=== PATIENT | female | born 1950 | race Caucasian/White ===

== ENCOUNTER 2018-04-07 09:46 | Outpatient (REF) | payer OTHER, SELFPAY ==
[2018-04-07 13:19] LABS: Cholesterol 211 mg/dL (50-200); HDL Cholesterol 59 mg/dL (40-60); LDL CHOLESTEROL 123 mg/dL (<100); Triglyceride 199 mg/dL (30-150)
== END 2018-04-07 10:06 ==
LOC: NCHCN 09:46
PROVIDERS: PCP Family Medicine; Visit Provider Family Medicine
DX: E55.9 Vitamin D deficiency, unspecified (principal); E78.5 Hyperlipidemia, unspecified
CPT/HCPCS: 80061; 82306; 83721

== ENCOUNTER 2018-06-30 00:23 | Outpatient (CLI) | payer OTHER, SELFPAY ==
--- NOTE | 2018-06-30 12:50 | DI.MAMMO_ITS ---
SYMPTOMS/DIAGNOSIS: SCREENING, Z12.31 BILATERAL SCREENING MAMMOGRAM: Mammograms were interpreted according to the usual protocol including computer analysis with CAD system, tomosynthesis and C view imaging. Comparison is made with exams from 2014 and 2016 from [facility]. The breasts are composed of scattered fibroglandular density, breast density category B. There is dense breast tissue in the subareolar region and a question of an area of nodularity in the right subareolar region. Spot compression views and ultrasound are recommended for further evaluation. No changes seen in the left breast. There are no suspicious calcifications in either breast. IMPRESSION: Left breast category 1B, negative mammogram. Right breast category 0. MQSA ASSESSMENT OF FINDINGS: Incomplete: Needs additional imaging evaluation. Category 0. Patient will receive a letter notifying them of these results. MQSA ASSESSMENT OF FINDINGS: Negative. Category 1. Patient will receive a letter notifying them of these results. BI-RADS category B. There are scattered areas of fibroglandular density.
== END 2018-06-30 00:43 ==
PROVIDERS: PCP Family Medicine; Visit Provider Family Medicine
DX: Z12.31 Encounter for screening mammogram for malignant neoplasm of breast (principal); R92.8 Other abnormal and inconclusive findings on diagnostic imaging of breast
CPT/HCPCS: 77063; 77067

== ENCOUNTER 2018-07-14 01:08 | Outpatient (CLI) | payer OTHER, SELFPAY ==
--- NOTE | 2018-07-14 10:30 | DI.COMBO_ITS ---
SYMPTOMS/DIAGNOSIS: F/U MAMMO, DENSE BREAST TISSUE IN THE SUBAREOLAR REGION AND ? AREA OF NODULARITY RT SUBAREOLAR REGION SPOT COMPRESSION VIEWS OF THE RIGHT BREAST AND RIGHT BREAST ULTRASOUND: Additional images are interpreted according to the usual protocol including tomosynthesis and 2D imaging. Spot compression views were performed of the subareolar region which showed dense tissue. There has been no change from the previous exam. Similar findings are seen in the collateral breast. Right breast ultrasound shows dense tissue in the retroareolar region. No underlying mass is seen. The left breast was also scanned for comparison which shows similar appearing dense tissue. IMPRESSION: Category 2, negative mammogram and right breast ultrasound with benign findings of dense breast tissue. Yearly screening mammography is recommended. Breast density Category B. MQSA ASSESSMENT OF FINDINGS: Negative with benign findings. Category 2. Patient will receive a letter notifying them of these results. BI-RADS category B. There are scattered areas of fibroglandular density.
== END 2018-07-14 01:28 ==
PROVIDERS: PCP Family Medicine; Visit Provider Family Medicine
DX: Z12.31 Encounter for screening mammogram for malignant neoplasm of breast (principal); R92.8 Other abnormal and inconclusive findings on diagnostic imaging of breast; N64.59 Other signs and symptoms in breast
CPT/HCPCS: 76642; 77063; 77067

== ENCOUNTER 2019-04-14 09:20 | Outpatient (REF) | payer OTHER, SELFPAY ==
[2019-04-14 12:23] LABS: ALT 22 U/L (14-59); AST 20 U/L (15-37); Alkaline Phosphatase 79 U/L (46-116); BUN 16 mg/dL (7-18); Bilirubin, Total 0.7 mg/dL (0.2-1.0); CREATININE 1.27 mg/dL (0.55-1.02); Calcium 9.4 mg/dL (8.5-10.1); Calculated LDL 121 mg/dL; Chloride 101 mmol/L (98-107); Cholesterol 222 mg/dL (50-200); Glucose 115 mg/dL (70-100); HDL Cholesterol 68 mg/dL (40-60); Sodium 138 mmol/L (136-145); Triglyceride 165 mg/dL (30-150)
== END 2019-04-14 09:40 ==
LOC: NCHCN 09:20
PROVIDERS: PCP Family Medicine; Visit Provider Family Medicine
DX: E78.5 Hyperlipidemia, unspecified (principal); I10 Essential (primary) hypertension; R35.0 Frequency of micturition
CPT/HCPCS: 80053; 80061; 87086

== ENCOUNTER 2020-04-18 09:51 | Outpatient (REF) | payer OTHER, SELFPAY ==
[2020-04-18 22:21] LABS: HCT 42.3 % (36.0-46.0); HGB 13.7 g/dL (11.2-15.7); MCH 31.6 pg (27.0-33.0); MCHC 32.4 % (32.0-36.0); MCV 97.7 fL (80-95); MPV 10.5 fL (8.0-11.0); Platelet Count 204 10^3/uL (130-400); RBC 4.33 10^6/uL (3.93-5.22); RDW 12.5 % (11.7-14.6); RDW-SD 44.9 fL
[2020-04-18 22:45] LABS: ALT 28 U/L (14-59); AST 18 U/L (15-37); Albumin 3.8 g/dL (3.4-5.0); Alkaline Phosphatase 70 U/L (46-116); BUN 20 mg/dL (7-18); Bilirubin, Total 0.5 mg/dL (0.2-1.0); CREATININE 1.27 mg/dL (0.55-1.02); Calcium 9.3 mg/dL (8.5-10.1); Calculated LDL 119 mg/dL (<100); Chloride 103 mmol/L (98-107); Cholesterol 215 mg/dL (<200); Estimated GFR 41.48 (mL/min/1.73m2); Glucose 102 mg/dL (74-106); HDL Cholesterol 57 mg/dL (40-60); Potassium 5.1 mmol/L (3.5-5.1); Sodium 137 mmol/L (136-145); Total Protein 7.5 g/dL (6.4-8.2); Triglyceride 197 mg/dL (<150)
== END 2020-04-18 10:11 ==
LOC: NCHCN 09:51
PROVIDERS: PCP Family Medicine; Visit Provider Family Medicine
DX: Z00.00 Encounter for general adult medical examination without abnormal findings (principal); E78.5 Hyperlipidemia, unspecified; I10 Essential (primary) hypertension; R73.03 Prediabetes; R53.83 Other fatigue
CPT/HCPCS: 80053; 80061; 85027

== ENCOUNTER 2021-04-25 14:50 | Outpatient (REF) | payer MEDICARE, SELFPAY ==
[2021-04-25 14:39] LABS: HCT 46.2 % (36.0-46.0); HGB 14.6 g/dL (11.2-15.7); MCHC 31.6 % (32.0-36.0); MCV 98.1 fL (80-95); MPV 10.3 fL (8.0-11.0); Platelet Count 249 10^3/uL (130-400); RBC 4.71 10^6/uL (3.93-5.22); RDW 12.7 % (11.7-14.6); RDW-SD 46.3 fL; WBC 6.16 10^3/uL (4.4-10.8)
[2021-04-25 14:53] LABS: Hemoglobin A1C 5.8 % (<5.7)
[2021-04-25 15:18] LABS: Vitamin D 25 Total 51.7 ng/mL (30-100)
[2021-04-25 15:19] LABS: ALT 32 U/L (14-59); AST 20 U/L (15-37); Alkaline Phosphatase 77 U/L (46-116); Anion Gap 6.9 mmol/L (3-11); BUN 26 mg/dL (7-18); Bilirubin, Total 0.5 mg/dL (0.2-1.0); CO2 30.1 mmol/L (21.0-32.0); CREATININE 1.4 mg/dL (0.55-1.02); Calcium 9.8 mg/dL (8.5-10.1); Calculated LDL 149 mg/dL (<100); Chloride 103 mmol/L (98-107); Cholesterol 250 mg/dL (<200); Estimated GFR 36.96 (mL/min/1.73m2); Glucose 108 mg/dL (74-106); HDL Cholesterol 68 mg/dL (40-60); Potassium 5.3 mmol/L (3.5-5.1); Sodium 140 mmol/L (136-145); Triglyceride 166 mg/dL (<150)
== END 2021-04-25 14:51 | disposition home or self-care (01) ==
LOC: NCHCN 14:50
PROVIDERS: PCP Family Medicine; Visit Provider Family Medicine
DX: E66.9 Obesity, unspecified (principal); R73.03 Prediabetes; E55.9 Vitamin D deficiency, unspecified; R53.83 Other fatigue; E78.5 Hyperlipidemia, unspecified; I10 Essential (primary) hypertension
CPT/HCPCS: 80053; 80061; 82306; 85027; 83036

== ENCOUNTER 2021-07-08 13:10 | Inpatient (IN) | payer MEDICARE, SELFPAY ==
[2021-07-08] VITALS (21 sets, daily range): BP systolic 98–157; BP diastolic 74–99; PULSE 63–107; RESP 13–32; TEMP 36.6–37.9; O2SAT 86–95
--- NOTE | 2021-07-08 13:15 | RT.EKG_ITS ---
APPROVED REPORT Exam: Resting ECG Reason for Exam: SOB Patient Location: E HR:87 bpm ECG Measurements Heart Rate 87 AXIS NV 147 P 19 QRSd 93 QRS -15 QT 360 T 74 QTc 434 Conclusion Sinus rhythm...normal P axis, V-rate 60- 99 Nonspecific T abnormalities, lateral leads...T <-0.10mV, I aVL V5 V6 Physician: no stemi
--- NOTE | 2021-07-08 13:37 | ED.GENADUL_ITS ---
Discharge Plan Discharge Details Chief Complaint: SOB Admit Date/Time: 07/08/21 15:50 Admit Provider: Hali Murphy Attending Provider: Hali Murphy Primary Care Provider: Becca Frausto ED Provider: Hina Naik Discharge Data Discharge Date/Time-TO BE ENTERED AT DEPARTURE: 07/08/21 17:26 Medical Decision Making Patient is a pleasant 71 year old female presenting today with c/c of SOB in the setting of COVID-19. She states she was diagnosed COVID + 2 weeks ago. States she had initially been improving but that she has had SOB starting over the past few days. Denies CP. State initially she had diarrhea but that this has since subsided. No fevers/chills. No rash. Denies leg pain or LE edema. Has been coughing with intermittent sputum production. Has been monitoring O2 at home and has been in the high 80s over the past 24 hours. Patient is not vaccinated, declined antibody infusion when initially diagnosed. PMH signficant for HTN and hypercholesteremia. On exam, patient appears nontoxic. She is tachypnic and has O2 in the mid 80s after ambulating into the hospital. No allie respiratory disress. O2 improved with 2L NC, she reports feeling subjectively improved. Crackles in the RUL, otherwise clear. Normal cardiac exam. Abdomen benign. Calf is soft and non tender, no edema. ECG obtained, NSR 87, no acute ischemic changes. Concerned for possible PE with her progressive SOB 2 weeks into illness. Also concidered inflammatory phase, worsening infection, overriding bacterial pneumonia, cardiac etiology. Labs reviewed. CBC WNL. D-dimer elevated, will obtain CT for PE protocol. CMP signficant for hypokalemia, hypomagnesemia and will replenish. Ttransaminitis noted, no previous for comparison. Contacted by radiologist, no PE noted. Consistent with COVID-19 diagnosis. Patient was given dexamethason. She si considering Remdesivir, speaking with her about this. Consulted with hospitalist regarding admission for COVID and hypoxia. Patient in agreement with this plan. HPI General Mode of arrival: ambulatory . Date/Time Provider Initiated Documentation: 07/08/21 13:11 . Limitations to Documentation: no limitations . Information obtained by: patient and RN notes reviewed . History of Present Illness 71 year old F presents to the emergency department with the chief complaint of SOB, described as moderate, Quality is described as other (Denies any pain), and is localized to the chest. Patient reports no radia tion. Patient started experiencing this week(s) (2) and it has been constant (SOB has been progressive over the past few days). No relieving factors improve symptom(s), Movement worsens symptoms (exertion) . Patient notes cough, loss of appetite and shortness of breath; denies chest pain, diaphoresis, fever/chills, nausea/vomiting, rash and syncope. Patient did receive the following treatments prior to arrival, none Related Data Home Medications Medication Instructions Recorded Confirmed lisinopril 20 mg PO DAILY 07/08/21 07/08/21 pravastatin 40 mg PO DAILY 07/08/21 07/08/21 Allergies Allergy/AdvReac Type Severity Reaction Status Date / Time No Known Allergies Allergy Unverified 07/08/21 13:28 General Stated Complaint: SOB JUAN ANTONIO: 3 Review of Systems Constitutional Constitutional: Reports as per HPI, Denies chills, Denies fever(s), Denies headache(s) and Denies lethargy ENT Ears, Nose, Mouth, and Throat: Denies dizziness and Denies headache(s) Cardiovascular Cardiovascular: Reports as per HPI, Denies chest pain, Denies chest pain with activity, Denies leg edema, Denies lightheadedness, Denies radiating jaw, neck or arm pain, Reports dyspnea and Reports dyspnea on exertion Respiratory Respiratory: Reports as per HPI, Denies chest congestion, Reports cough, Denies pain on inspiration, Denies pain with cough, Reports dyspnea, Reports dyspnea on exertion and Denies wheezing Gastrointestinal Gastrointestinal: Reports as per HPI, Denies abdominal pain, Denies diarrhea, Denies nausea and Denies vomiting Musculoskeletal Musculoskeletal: Reports as per HPI and Denies back pain Integumentary/Breasts Skin/Breast: Reports as per HPI and Denies rash Neurologic Neurologic: Reports as per HPI, Denies dizziness and Denies headache(s) Allergic/Immunologic Allergic/Immunologic: Denies wheezing PFSH All Active Problems (Updated 07/08/21 @ 16:21 by Sigrid Biggs NP) Discharge planning issues (Acute) DVT prophylaxis (Acute) COVID-19 (Acute) Hypercholesteremia (Acute) Hypertension (Acute) Surgical History (Updated 07/08/21 @ 13:32 by Paloma Hernandez) History of hip replacement Social History Smoking/Tobacco Use Status: Former Tobacco Use Quit Date: 06/29/09 Smoking risk assessment performed?: Yes Alcohol Intake: never Substance use type: does not use Do you feel safe at home: Yes Do you feel safe in your relationship?: Yes Exam Const General: cooperative, healthy appearing, comfortable, no acute distress and well developed Nutritional Appearance: average body habitus and well nourished Orientation: alert, awake and oriented x3 HENMT Head: normal to inspection Ears: hearing grossly normal bilaterally Mouth: moist mucous membranes Chest Chest: normal inspection of the chest, normal palpation of entire chest wall and no crepitus Resp Effort & Inspection: normal respiratory effort, able to speak in complete sentences, no respiratory distress, tachypneic and no use of accessory muscles Auscultation: crackles on the right in the upper lung lawrence, no rales, no rhonchi and no wheezes Cardio Rate: regular rate Rhythm: regular rhythm Heart Sounds: S1 normal and S2 normal GI Inspection: normal to inspection, no edema and non-distended Palpation: soft, no hepatosplenomegaly, not firm, no guarding, not rigid and nontender Auscultation: normal bowel sounds Skin General skin exam: no rashes or lesions noted Trauma: no lacerations or abrasions Neuro General: patient alert, patient awake and patient oriented x3 Cognition: normal cognition Speech: speech normal Gait: normal gait Extrem General: normal to inspection, capillary refill normal, no pedal edema, no calf tenderness and normal gait Psych Appearance: grossly normal and well kempt Mental Status: mental status grossly normal Speech and Movement: speech and movement normal Course Vital Signs Vital signs: Vital Signs Temperature 37.3 C 07/08/21 13:23 Pulse 93 H 07/08/21 13:23 Respiratory Rate 32 H 07/08/21 13:23 Blood Pressure 151/87 H 07/08/21 13:23 Pulse Oximetry 86 L 07/08/21 13:23 Temperature 37.3 C 07/08/21 13:23 Temperature Source Temporal Artery Scan 07/08/21 13:23 Pulse 93 H 07/08/21 13:23 Respiratory Rate 32 H 07/08/21 13:23 Respiratory Effort Labored 07/08/21 13:31 Blood Pressure 151/87 H 07/08/21 13:23 Blood Pressure Position Sitting 07/08/21 13:23 Pulse Oximetry 86 L 07/08/21 13:23 Oxygen Delivery Method Room Air 07/08/21 13:23 Oxygen Flow Rate 0 07/08/21 13:23 Pain Level 0 07/08/21 13:23
[2021-07-08 13:50] LABS: Source Nasal/Nares
[2021-07-08 13:53] LABS: Abs Immature Grans 0.03 10^3/uL (0.0-0.06); Absolute Basophil Count 0.02 10^3/uL (0.0-0.2); Absolute Lymphocyte Count 1.35 10^3/uL (1.2-3.4); Absolute Monocyte Count 0.63 10^3/uL (0.1-0.8); Absolute Neutrophil Count 5.98 10^3/uL (1.2-6.7); Basophils % 0.2; HCT 41.4 % (36.0-46.0); HGB 13.8 g/dL (11.2-15.7); Immature Grans % 0.4; Lymphocytes % 16.9; MCH 31.1 pg (27.0-33.0); MCHC 33.3 % (32.0-36.0); MCV 93.2 fL (80-95); MPV 9.1 fL (8.0-11.0); Monocytes % 7.9; Neutrophils % 74.6; Nucleated RBC 0 %; Platelet Count 256 10^3/uL (130-400); RBC 4.44 10^6/uL (3.93-5.22); RDW 12.6 % (11.7-14.6); RDW-SD 43.2 fL; WBC 8.01 10^3/uL (4.4-10.8)
[2021-07-08 14:09] LABS: ALT 70 U/L (14-59); AST 52 U/L (15-37); Albumin 3.2 g/dL (3.4-5.0); Alkaline Phosphatase 140 U/L (46-116); Anion Gap 11.1 mmol/L (3-11); BUN 15 mg/dL (7-18); Bilirubin, Total 0.6 mg/dL (0.2-1.0); CO2 25.9 mmol/L (21.0-32.0); CREATININE 1.3 mg/dL (0.55-1.02); Calcium 9.1 mg/dL (8.5-10.1); Chloride 98 mmol/L (98-107); Estimated GFR 40.26 (mL/min/1.73m2); Glucose 116 mg/dL (74-106); Magnesium 1.6 mg/dL (1.8-2.4); Potassium 3.3 mmol/L (3.5-5.1); Sodium 135 mmol/L (136-145); Total Protein 8.3 g/dL (6.4-8.2); Troponin I < 50 ng/L (<or=60)
[2021-07-08 14:26] LABS: D-Dimer 1826 ng/mlFEU (<500)
--- NOTE | 2021-07-08 14:27 | DI.CT_ITS ---
Exam(s) CT CHEST PE CTA EXAM: CT CHEST PE CTA CLINICAL HISTORY: hypoxia, SOB, setting of COVID. TECHNIQUE: Imaging Protocol: Axial CT angiography was performed with multi-slice acquisition and mu lti-planar and/or 3D reconstructions. CONTRAST MATERIAL: Intravenous: Omnipaque 350 Contrast volume:72 ml COMPARISON: No exams were available for comparison FINDINGS: Exam is somewhat limited by respiratory motion. There are patchy mainly ground-glass appearing infil trates in both upper and lower lobes. No pulmonary emboli are seen. There is motion at the aortic r oot but no evidence of dissection. There is mild cardiac enlargement. There are mild coronary arter y calcifications. There are minimal aortic calcifications. No adenopathy. No pleural effusion or p neumothorax. Status post cholecystectomy. Fatty liver. Degenerative changes are seen in the thorac ic spine. No compression fractures. IMPRESSION: Diffuse bilateral pulmonary infiltrates. No evidence of pulmonary embolism. RADIATION DOSE DELIVERED: 362.53mGy.cm Total DLP DATA REPOSITORY: All CT scans at this facility are submitted to the National Radiology Data Registry (NRDR) Dose Index Registry (DIR) with the [employer] (A[employer]). RADIATION OPTIMIZATION: All CT scans at this facility use at least one of these dose optimization te chniques: automated exposure control; mA and/or kV adjustment per patient size (includes targeted exa ms where dose is matched to clinical indication); or iterative reconstruction.
--- NOTE | 2021-07-08 14:30 | DI.RAD_ITS ---
Exam(s) XR PORTABLE CHEST AP EXAM: XR PORTABLE CHEST AP CLINICAL HISTORY: SOB TECHNIQUE: 2D digital imaging was performed. COMPARISON: No exams were available for comparison FINDINGS: Heart size is within normal limits. There are low lung volumes. There are bilateral streaky infiltr ates in both upper and lower lobes. No visible effusions. No pneumothorax. IMPRESSION: Bilateral diffuse infiltrates, compatible with COVID- 19 pneumonia. DATA REPOSITORY: RADIATION DOSE DELIVERED:
[2021-07-08 14:50] LABS: COVID-19 PCR POSITIVE (Negative)
[2021-07-08] MEDS: Omnipaque 350 MG/ML 100 ML BTL IV (14:56)
[2021-07-08] MEDS: Dexamethasone 10 MG/ML VIAL 6 MG IVP (16:01)
[2021-07-08] MEDS: POTASSIUM CHLORIDE 20 MEQ, POTASSIUM CHLORIDE 10 MEQ 30 MEQ PO (16:05)
[2021-07-08] MEDS: MAGNESIUM SULFATE 1 GM/100 ML BAG IVPB (16:05)
--- NOTE | 2021-07-08 16:19 | W.PM.HP.N ---
Date of service: 07/08/21 Time of Service: 16:19 Assessment and Plan Assessment and plan (1) COVID-19: Status: Acute Assessment and plan: started on remdesivir and decadron routine covid supplements wean oxygen as able. (2) Hypertension: Status: Acute Assessment and plan: blood pressure controlled. continue lisinopril monitor routinely (3) Hypercholesteremia: Status: Acute Assessment and plan: continue pravastatin (4) DVT prophylaxis: Status: Acute Assessment and plan: full dose enoxaparin based on new covid guidelines (5) Discharge planning issues: Status: Acute Assessment and plan: anticipate a discharge to home with no services once medically stable discussed with Dr Murphy History of Present Illness History of Present Illness Chief Complaint: shortness of breath Narrative: This is a 71 year old female who presented to the ED for shortness of breath, diagnosed with covid approx 14 days ago. She is unvaccinated, declined any treatments offered at the time. She was self monitoring and noted sats to be below 90 so presented to the ED. her work up in the ED included a chest CT which was negative for PE. Covid PCR remains positive. Labs show normal troponin, procal 0.1, and mag level of 1.6 which was repleted. She was given decadron 6 mg IV and initially going to refuse remdesivir but was ultimately agreeable to receiving it. She is requiring 2 liters nc oxygen to maintain sats above 90. she will be admitted to hospitalist services for further management. Review of Systems All systems reviewed & are unremarkable except as noted in HPI and below Constitutional Constitutional: Denies fever(s) and Reports poor appetite Eyes Eyes: Denies loss of vision ENT Ears, Nose, Mouth, and Throat: Denies vertigo and Denies dizziness Cardiovascular Cardiovascular: Denies chest pain and Reports dyspnea Respiratory Respiratory: Reports cough, Denies hemoptysis, Reports dyspnea and Denies wheezing Gastrointestinal Gastrointestinal: Denies abdominal pain and Denies vomiting Musculoskeletal Musculoskeletal: Reports myalgias Integumentary/Breasts Skin/Breast: Denies lesions and Denies rash Neurologic Neurologic: Denies confusion, Denies vertigo, Denies dizziness and Denies loss of vision Psychiatric Psychiatric: Denies confusion Allergic/Immunologic Allergic/Immunologic: Denies wheezing PFSH All Active Problems (Updated 07/08/21 @ 16:21 by Sigrid Biggs NP) Discharge planning issues (Acute) DVT prophylaxis (Acute) COVID-19 (Acute) Hypercholesteremia (Acute) Hypertension (Acute) Surgical History (Updated 07/08/21 @ 13:32 by Paloma Hernandez) History of hip replacement Social History Smoking/Tobacco Use Status: Former Tobacco Use Quit Date: 06/29/09 Smoking risk assessment performed?: Yes Alcohol Intake: never Substance use type: does not use Do you feel safe at home: Yes Do you feel safe in your relationship?: Yes Meds Allergies and Home Medications Allergies Allergy/AdvReac Type Severity Reaction Status Date / Time No Known Allergies Allergy Unverified 07/08/21 13:28 Home Medications Medication Instructions Recorded Confirmed Type lisinopril 20 mg PO DAILY 07/08/21 07/08/21 History pravastatin 40 mg PO DAILY 07/08/21 07/08/21 History Exam Const General: cooperative, healthy appearing, comfortable, no acute distress and well developed Nutritional Appearance: overweight Orientation: alert, awake and oriented x3 HENMT Head: normal to inspection Mouth: abnormal oral mucosae (slightly dry, no exudates) Resp Effort & Inspection: no respiratory distress and tachypneic (with activity ) Auscultation: clear to auscultation bilaterally, diminished lung sounds (bases bilaterally), no rhonchi and no wheezes Cardio Rate: regular rate Rhythm: regular rhythm GI Inspection: normal to inspection Palpation: soft Skin General skin exam: no rashes or lesions noted Neuro General: patient alert, patient awake, patient oriented x3 and no focal motor deficits Cognition: normal cognition Speech: speech normal Motor: muscle tone normal throughout Extrem General: normal to inspection, full ROM and no pedal edema Results Labs Result diagrams: 07/09/21 06:20 07/09/21 06:20 Labs: Laboratory Results - last 24 hr 07/08/21 07/08/21 07/08/21 13:35 13:35 13:35 WBC 8.01 RBC 4.44 Hgb 13.8 Hct 41.4 MCV 93.2 MCH 31.1 MCHC 33.3 RDW 12.6 Plt Count 256 MPV 9.1 Immature Gran % 0.4 Neutrophils % 74.6 Lymphocytes % 16.9 Monocytes % 7.9 Eosinophils % 0.0 Basophils % 0.2 Nucleated RBC % 0 Absolute Neutrophils 5.98 Absolute Lymphocytes 1.35 Absolute Monocytes 0.63 Absolute Eosinophils 0.00 Absolute Basophils 0.02 D-Dimer 1826 H Sodium 135 L Potassium 3.3 L Chloride 98 Carbon Dioxide 25.9 Anion Gap 11.1 H BUN 15 Creatinine 1.3 H Estimated GFR/1.73 m2 40.26 Glucose 116 H Calcium 9.1 Magnesium 1.6 L Total Bilirubin 0.6 AST 52 H ALT 70 H Alkaline Phosphatase 140 H Troponin I < 50 Total Protein 8.3 H Albumin 3.2 L COVID-19 Source SARS-CoV-2 (PCR) 07/08/21 13:44 WBC RBC Hgb Hct MCV MCH MCHC RDW Plt Count MPV Immature Gran % Neutrophils % Lymphocytes % Monocytes % Eosinophils % Basophils % Nucleated RBC % Absolute Neutrophils Absolute Lymphocytes Absolute Monocytes Absolute Eosinophils Absolute Basophils D-Dimer Sodium Potassium Chloride Carbon Dioxide Anion Gap BUN Creatinine Estimated GFR/1.73 m2 Glucose Calcium Magnesium Total Bilirubin AST ALT Alkaline Phosphatase Troponin I Total Protein Albumin COVID-19 Source Nasal/Nares SARS-CoV-2 (PCR) POSITIVE A* Last Vital Signs Temp 37.3 C 07/08/21 13:23 Pulse 82 07/08/21 14:01 Resp 13 07/08/21 14:01 BP 133/74 07/08/21 14:01 Pulse Ox 91 L 07/08/21 14:01
[2021-07-08 16:59] LABS: Creatine Kinase 132 U/L (26-192)
[2021-07-08 17:18] LABS: Procalcitonin 0.1 ng/mL
[2021-07-08 17:50] LABS: Troponin I < 50 ng/L (<or=60)
[2021-07-08] MEDS: REMDESIVIR 200 MG in Normal Saline 250 ML 250 MG IVPB (18:11)
[2021-07-08] MEDS: Normal Saline 500 ML 50 ML IV (18:12)
[2021-07-08] MEDS: Normal Saline Flush 10 ML SYR IVP (18:13)
[2021-07-08] MEDS: Enoxaparin 80 MG/0.8 ML SYR SC (18:14)
[2021-07-08] MEDS: Ascorbic Acid 500 MG TAB 1000 MG PO (19:35)
[2021-07-08] MEDS: Pravastatin 40 MG TAB PO (19:35)
[2021-07-08] MEDS: Melatonin 3 MG TAB PO (22:37)
[2021-07-09] VITALS (13 sets, daily range): BP systolic 128–140; BP diastolic 77–97; PULSE 70–84; RESP 18–24; TEMP 35.7–36.6; O2SAT 75–94
[2021-07-09] MEDS: Enoxaparin 80 MG/0.8 ML SYR SC ×2 (05:20→17:18)
[2021-07-09 07:08] LABS: Abs Immature Grans 0.02 10^3/uL (0.0-0.06); Absolute Basophil Count 0.01 10^3/uL (0.0-0.2); Absolute Lymphocyte Count 0.82 10^3/uL (1.2-3.4); Absolute Monocyte Count 0.54 10^3/uL (0.1-0.8); Absolute Neutrophil Count 3.28 10^3/uL (1.2-6.7); Basophils % 0.2; HCT 37.6 % (36.0-46.0); HGB 12.6 g/dL (11.2-15.7); Immature Grans % 0.4; Lymphocytes % 17.6; MCHC 33.5 % (32.0-36.0); MCV 92.6 fL (80-95); MPV 9.4 fL (8.0-11.0); Monocytes % 11.6; Neutrophils % 70.2; Nucleated RBC 0 %; Platelet Count 274 10^3/uL (130-400); RBC 4.06 10^6/uL (3.93-5.22); RDW 12.6 % (11.7-14.6); RDW-SD 42.9 fL; WBC 4.67 10^3/uL (4.4-10.8)
[2021-07-09 07:32] LABS: ALT 60 U/L (14-59); AST 40 U/L (15-37); Albumin 2.7 g/dL (3.4-5.0); Alkaline Phosphatase 117 U/L (46-116); Anion Gap 12.5 mmol/L (3-11); BUN 23 mg/dL (7-18); Bilirubin, Direct 0.2 mg/dL (0.0-0.2); Bilirubin, Total 0.6 mg/dL (0.2-1.0); C-Reactive Protein 18.55 mg/dL (0.0-0.3); CO2 20.5 mmol/L (21.0-32.0); CREATININE 1.2 mg/dL (0.55-1.02); Calcium 9.1 mg/dL (8.5-10.1); Chloride 106 mmol/L (98-107); Creatine Kinase 110 U/L (26-192); Estimated GFR 44.16 (mL/min/1.73m2); Glucose 126 mg/dL (74-106); Magnesium 2.1 mg/dL (1.8-2.4); PHOSPHORUS 3.7 mg/dL (2.6-4.7); Sodium 139 mmol/L (136-145); Total Protein 7.4 g/dL (6.4-8.2)
[2021-07-09 08:10] LABS: D-Dimer 1481 ng/mlFEU (<500)
[2021-07-09 08:25] LABS: Prothrombin Time 10.5 sec (9.3-11.0)
[2021-07-09 09:09] LABS: Calculated LDL 58 mg/dL (<100); Cholesterol 129 mg/dL (<200); HDL Cholesterol 58 mg/dL (40-60); Triglyceride 67 mg/dL (<150)
[2021-07-09 09:12] LABS: Ferritin 1696 ng/mL (8-252)
[2021-07-09] MEDS: Ascorbic Acid 500 MG TAB 1000 MG PO ×2 (09:32→20:18)
[2021-07-09] MEDS: Dexamethasone 4 MG TAB 6 MG PO (09:32)
[2021-07-09] MEDS: Zinc Sulfate 220 MG TAB PO (09:33)
[2021-07-09] MEDS: Famotidine 20 MG TAB PO (09:33)
[2021-07-09] MEDS: Cholecalciferol (Vitamin D3) 1,000 UNIT TAB 2000 UNITS PO (09:33)
[2021-07-09] MEDS: Lisinopril 20 MG TAB PO (09:33)
[2021-07-09] MEDS: Normal Saline Flush 10 ML SYR IVP ×2 (09:34→15:52)
--- NOTE | 2021-07-09 10:22 | PHA.REVIEW ---
Pharmacy Admission Review - Admission Clinical Review (Last Updated 07/08/21 @ 13:32 by Paloma Hernandez) Discharge planning issues (Acute) DVT prophylaxis (Acute) COVID-19 (Acute) Hypercholesteremia (Acute) Hypertension (Acute) No Known Allergies Allergy (Unverified 07/08/21 13:28) Resuscitation Status Full Code Height 5 ft 2 in Weight 78.018 kg - Renal Dosing Renal Dosing: BUN 23 mg/dL (7-18) H 07/09/21 06:20 Creatinine 1.2 mg/dL (0.55-1.02) H 07/09/21 06:20 Medications needing adjustments: Reviewed (Crcl ~41 mL/min using adjusted body weight, current meds okay) - Anticoagulation Anticoagulation: Hgb 12.6 g/dL (11.2-15.7) 07/09/21 06:20 Hct 37.6 % (36.0-46.0) 07/09/21 06:20 Plt Count 274 10^3/uL (130-400) 07/09/21 06:20 INR 1.0 (0.9-1.1) 07/09/21 06:20 Creatinine 1.2 mg/dL (0.55-1.02) H 07/09/21 06:20 DVT Prophylaxis: Reviewed Medications: Enoxaparin (was changed from therapeutic dosing to prophylactic dosing based on current covid treatment recommendations as pt was going to be transferred to the ICU. The pt now may stay in [place], so watch for potential change back to therapeutic dosing.) Therapeutic Anticoagulation: N/A - Opiate Usage Evaluate Pain Scale/Pains Meds: N/A - Relevant Labs Sodium 139 mmol/L (136-145) 07/09/21 06:20 Potassium 4.0 mmol/L (3.5-5.1) D 07/09/21 06:20 Chloride 106 mmol/L (98-107) 07/09/21 06:20 Phosphorus 3.7 mg/dL (2.6-4.7) 07/09/21 06:20 Magnesium 2.1 mg/dL (1.8-2.4) 07/09/21 06:20 C-Reactive Protein 18.55 mg/dL (0.0-0.3) H 07/09/21 06:20 Electrolytes, C-Reactive P, ESR: Reviewed - DM Control DM Control: Glucose 126 mg/dL (74-106) H 07/09/21 06:20 Insulin Dosing: N/A (No DM noted in medical history, most recent A1c was 5.8 on 04/25/21) - Heart Failure/MN Heart Failure/MN: Troponin I < 50 ng/L (<or=60) 07/08/21 17:08 EF%, EDWARD's, B-Blockers, Diuretics: Reviewed - BP Control BP Control: Blood Pressure 128/88 Blood Pressure 131/97 Blood Pressure 139/83 If elevated: Reviewed (BP has been up and down a bit so far this admission. Currently has lisinopril ordered.) - Qtc Review If Elevated: N/A (QTc 434 on admission) - IV to PO Switch IV Medications: Reviewed - Home Meds Home Med List reviewed: Reviewed Relevent Home Meds Not ordered & why?: Both home meds are currently ordered. - Current meds Current Medication Order Review: Intervened (Discontinued duplicate med orders and DI meds that had already been given.) - Comments Comments/Follow Ups: Watch BP, SCr, labs and for med changes (possible renal dose adjustments, possible change in anticoagulant dosing).
[2021-07-09] MEDS: Ipratropium/Albuterol 4 GM 120 PUFF INH IH ×3 (11:20→20:19)
--- NOTE | 2021-07-09 12:24 | W.PM.PROGNOT ---
Date of Service Date of service: 07/09/21 Time of Service: 12:24 Assessment and Plan Assessment and plan (1) COVID-19: Status: Acute Assessment and plan: on remdesivir and decadron day 2 routine covid supplements wean oxygen as able. (2) Hypertension: Status: Acute Assessment and plan: blood pressure controlled. continue lisinopril monitor routinely (3) Hypercholesteremia: Status: Acute Assessment and plan: continue pravastatin (4) DVT prophylaxis: Status: Acute Assessment and plan: full dose enoxaparin based on new covid guidelines (5) Discharge planning issues: Status: Acute Assessment and plan: anticipate a discharge to home with no services once medically stable discussed with Dr Murphy Subjective Subjective Patient reports: tolerating liquids well, tolerating a regular diet, voiding w/o difficulty, shortness of breath and afebrile Interval history since last seen: required increased F102 overnight but weaned back to 2 liters by nc today. Exam Const General: cooperative, healthy appearing, comfortable, no acute distress and well developed Nutritional Appearance: overweight Orientation: alert, awake and oriented x3 HENMT Head: normal to inspection Mouth: abnormal oral mucosae (slightly dry, no exudates) Resp Effort & Inspection: no respiratory distress and tachypneic (with activity ) Auscultation: clear to auscultation bilaterally, diminished lung sounds (bases bilaterally), no rhonchi and no wheezes Cardio Rate: regular rate Rhythm: regular rhythm GI Inspection: normal to inspection Palpation: soft Skin General skin exam: no rashes or lesions noted Neuro General: patient alert, patient awake, patient oriented x3 and no focal motor deficits Cognition: normal cognition Speech: speech normal Motor: muscle tone normal throughout Extrem General: normal to inspection, full ROM and no pedal edema Objective Last Vital Signs Temp 36.6 C 07/09/21 11:26 Pulse 76 07/09/21 11:26 Resp 20 07/09/21 11:26 BP 139/78 07/09/21 11:26 Pulse Ox 93 07/09/21 11:26 Laboratory Results - last 24 hr 07/08/21 07/08/21 07/08/21 13:35 13:35 13:35 WBC 8.01 RBC 4.44 Hgb 13.8 Hct 41.4 MCV 93.2 MCH 31.1 MCHC 33.3 RDW 12.6 Plt Count 256 MPV 9.1 Immature Gran % 0.4 Neutrophils % 74.6 Lymphocytes % 16.9 Monocytes % 7.9 Eosinophils % 0.0 Basophils % 0.2 Nucleated RBC % 0 Absolute Neutrophils 5.98 Absolute Lymphocytes 1.35 Absolute Monocytes 0.63 Absolute Eosinophils 0.00 Absolute Basophils 0.02 PT INR D-Dimer 1826 H Sodium 135 L Potassium 3.3 L Chloride 98 Carbon Dioxide 25.9 Anion Gap 11.1 H BUN 15 Creatinine 1.3 H Estimated GFR/1.73 m2 40.26 Glucose 116 H Calcium 9.1 Phosphorus Magnesium 1.6 L Ferritin Total Bilirubin 0.6 Conjugated Bilirubin AST 52 H ALT 70 H Alkaline Phosphatase 140 H Creatine Kinase Troponin I < 50 C-Reactive Protein Total Protein 8.3 H Albumin 3.2 L Triglycerides Total Cholesterol LDL Cholesterol, Calc HDL Cholesterol Procalcitonin COVID-19 Source SARS-CoV-2 (PCR) 07/08/21 07/08/21 07/08/21 13:35 13:35 13:44 WBC RBC Hgb Hct MCV MCH MCHC RDW Plt Count MPV Immature Gran % Neutrophils % Lymphocytes % Monocytes % Eosinophils % Basophils % Nucleated RBC % Absolute Neutrophils Absolute Lymphocytes Absolute Monocytes Absolute Eosinophils Absolute Basophils PT INR D-Dimer Sodium Potassium Chloride Carbon Dioxide Anion Gap BUN Creatinine Estimated GFR/1.73 m2 Glucose Calcium Phosphorus Magnesium Ferritin Total Bilirubin Conjugated Bilirubin AST ALT Alkaline Phosphatase Creatine Kinase 132 Troponin I C-Reactive Protein Total Protein Albumin Triglycerides Total Cholesterol LDL Cholesterol, Calc HDL Cholesterol Procalcitonin 0.1 COVID-19 Source Nasal/Nares SARS-CoV-2 (PCR) POSITIVE A* 07/08/21 07/09/21 07/09/21 17:08 06:20 06:20 WBC 4.67 D RBC 4.06 Hgb 12.6 Hct 37.6 MCV 92.6 MCH 31.0 MCHC 33.5 RDW 12.6 Plt Count 274 MPV 9.4 Immature Gran % 0.4 Neutrophils % 70.2 Lymphocytes % 17.6 Monocytes % 11.6 Eosinophils % 0.0 Basophils % 0.2 Nucleated RBC % 0 Absolute Neutrophils 3.28 Absolute Lymphocytes 0.82 L Absolute Monocytes 0.54 Absolute Eosinophils 0.00 Absolute Basophils 0.01 PT INR D-Dimer Sodium 139 Potassium 4.0 D Chloride 106 Carbon Dioxide 20.5 L Anion Gap 12.5 H BUN 23 H Creatinine 1.2 H Estimated GFR/1.73 m2 44.16 Glucose 126 H Calcium 9.1 Phosphorus 3.7 Magnesium 2.1 Ferritin 1696 H Total Bilirubin 0.6 Conjugated Bilirubin 0.2 AST 40 H ALT 60 H Alkaline Phosphatase 117 H Creatine Kinase 110 Troponin I < 50 C-Reactive Protein 18.55 H Total Protein 7.4 Albumin 2.7 L Triglycerides 67 Total Cholesterol 129 LDL Cholesterol, Calc 58 HDL Cholesterol 58 Procalcitonin COVID-19 Source SARS-CoV-2 (PCR) 07/09/21 06:20 WBC RBC Hgb Hct MCV MCH MCHC RDW Plt Count MPV Immature Gran % Neutrophils % Lymphocytes % Monocytes % Eosinophils % Basophils % Nucleated RBC % Absolute Neutrophils Absolute Lymphocytes Absolute Monocytes Absolute Eosinophils Absolute Basophils PT 10.5 INR 1.0 D-Dimer 1481 H Sodium Potassium Chloride Carbon Dioxide Anion Gap BUN Creatinine Estimated GFR/1.73 m2 Glucose Calcium Phosphorus Magnesium Ferritin Total Bilirubin Conjugated Bilirubin AST ALT Alkaline Phosphatase Creatine Kinase Troponin I C-Reactive Protein Total Protein Albumin Triglycerides Total Cholesterol LDL Cholesterol, Calc HDL Cholesterol Procalcitonin COVID-19 Source SARS-CoV-2 (PCR) PAWSS Have you Been Recently Intoxicated or Drunk Within the Last 30 days?: No Have you Ever Experienced Previous Episodes of Alcohol Withdrawal?: No Result: 0
--- NOTE | 2021-07-09 17:39 | PDOC.CMIN ---
- If Service Date Differs Date of service: 07/09/21 Time of Service: 17:39 Care Management Initial Assess REASON FOR HOSPITALIZATION:: COVID-19 PAST MEDICAL HISTORY/PAST SURGICAL HISTORY:: Hip replacement PREVIOUS FUNCTIONAL STATUS/SOCIAL/FAMILY SUPPORTS:: Resides in [place], with , Tee. Independent at baseline in the community. CURRENT FUNCTIONAL STATUS:: Ondina remains on COVID precautions. CM unable to outreach to her or her today. Will continue to follow. Has patient been provided with info about the portal/API?: No Did the patient sign up for the portal?: No CODE STATUS:: Full Code INSURANCE COVERAGE / FINANCIAL ISSUES:: [facility]. [employer] CURRENT HOME/COMMUNITY SERVICES/EQUIPMENT:: Raised toilet seat, grab bars, tub bench, hand held shower. PRIMARY CARE PHYSICIAN:: Becca Frausto POTENTIAL DISCHARGE NEEDS:: Evaluation for further needs, follow up PCP appointment. PATIENT/FAMILY EDUCATION NEEDS:: Review discharge instructions, discuss Ask Me Three. ANTICIPATED BARRIERS TO DISCHARGE:: None identified. TRANSPORTATION:: Via private vehicle with . PLAN:: Ondina will return home when ready per MD. She will follow up with her PCP and plan of care as prescribed. She will transport via private vehicle with her .
[2021-07-09] MEDS: Pravastatin 40 MG TAB PO (20:19)
[2021-07-09] MEDS: Melatonin 3 MG TAB PO (23:29)
[2021-07-10] VITALS (11 sets, daily range): BP systolic 119–142; BP diastolic 77–90; PULSE 63–79; RESP 18–22; TEMP 36.2–36.6; O2SAT 92–95
[2021-07-10] MEDS: Enoxaparin 80 MG/0.8 ML SYR SC ×2 (06:15→17:41)
[2021-07-10] MEDS: Zinc Sulfate 220 MG TAB PO (07:41)
[2021-07-10] MEDS: Cholecalciferol (Vitamin D3) 1,000 UNIT TAB 2000 UNITS PO (07:41)
[2021-07-10] MEDS: Ascorbic Acid 500 MG TAB 1000 MG PO ×2 (07:42→20:53)
[2021-07-10] MEDS: Famotidine 20 MG TAB PO (07:42)
[2021-07-10] MEDS: Dexamethasone 4 MG TAB 6 MG PO (07:42)
[2021-07-10] MEDS: Normal Saline Flush 10 ML SYR IVP ×2 (07:42→16:06)
[2021-07-10] MEDS: Lisinopril 20 MG TAB PO (07:42)
[2021-07-10] MEDS: Ipratropium/Albuterol 4 GM 120 PUFF INH IH ×3 (07:43→20:55)
[2021-07-10 08:04] LABS: Abs Immature Grans 0.04 10^3/uL (0.0-0.06); Absolute Basophil Count 0.01 10^3/uL (0.0-0.2); Absolute Lymphocyte Count 1.42 10^3/uL (1.2-3.4); Absolute Monocyte Count 0.83 10^3/uL (0.1-0.8); Absolute Neutrophil Count 5.67 10^3/uL (1.2-6.7); Basophils % 0.1; HCT 36.7 % (36.0-46.0); HGB 12.2 g/dL (11.2-15.7); Immature Grans % 0.5; Lymphocytes % 17.8; MCH 30.6 pg (27.0-33.0); MCHC 33.2 % (32.0-36.0); MPV 9.6 fL (8.0-11.0); Monocytes % 10.4; Neutrophils % 71.2; Nucleated RBC 0 %; Platelet Count 339 10^3/uL (130-400); RBC 3.99 10^6/uL (3.93-5.22); RDW 12.8 % (11.7-14.6); RDW-SD 43.5 fL; WBC 7.97 10^3/uL (4.4-10.8)
[2021-07-10 08:05] LABS: INR 1.1 (0.9-1.1); Prothrombin Time 11.4 sec (9.3-11.0)
[2021-07-10 08:54] LABS: ALT 65 U/L (14-59); AST 34 U/L (15-37); Albumin 2.6 g/dL (3.4-5.0); Alkaline Phosphatase 108 U/L (46-116); Anion Gap 11.6 mmol/L (3-11); BUN 28 mg/dL (7-18); Bilirubin, Total 0.6 mg/dL (0.2-1.0); CO2 21.4 mmol/L (21.0-32.0); CREATININE 1.2 mg/dL (0.55-1.02); Calcium 8.9 mg/dL (8.5-10.1); Chloride 102 mmol/L (98-107); D-Dimer 1075 ng/mlFEU (<500); Estimated GFR 44.16 (mL/min/1.73m2); Glucose 93 mg/dL (74-106); Magnesium 1.8 mg/dL (1.8-2.4); Potassium 3.8 mmol/L (3.5-5.1); Sodium 135 mmol/L (136-145)
[2021-07-10 08:56] LABS: Ferritin 1728 ng/mL (8-252)
[2021-07-10 09:24] LABS: Bilirubin, Direct 0.2 mg/dL (0.0-0.2); C-Reactive Protein 8.92 mg/dL (0.0-0.3); PHOSPHORUS 3.5 mg/dL (2.6-4.7)
--- NOTE | 2021-07-10 09:37 | PDOC.CMPRO ---
- If Service Date Differs Date of service: 07/10/21 Time of Service: 09:37 Care Management Progress Note S/O:Ondina remains on isolation for Covid infection. CM was unable to meet with her in person, but did contact her by phone. Ondina is and has 3 children and 6 grandchildren. She was pleasant in interaction on the phone and engaged easily in conversation. Ondina shared that she has been sick for about 2 weeks and that it wasn't until her oxygen saturation levels dropped into the 80's that she sought help. She informed CM that her has Covid too but that his oxygen levels remain normal. Ondina is independent at baseline and does not receive any community services. She talked freely about her reluctance to receive the Covid vaccine and confusion about who to believe about the vaccine and the disease. She stated that she feels it is unfortunate that it all became such a political issue. A: Ondina is a 71 year old woman admitted with Covid-19 infection with hypoxia P:Ondina will likely return home with no new services when medically ready. She will follow up with her PCP and plan of care as prescribed and transport via private vehicle with her . CM will continue to support Ondina and assess for ongoing discharge concerns.
--- NOTE | 2021-07-10 10:40 | W.PM.PROGNOT ---
Date of Service Date of service: 07/10/21 Time of Service: 10:40 Assessment and Plan Assessment and plan (1) COVID-19: Status: Acute Assessment and plan: on remdesivir and decadron day 3 routine covid supplements wean oxygen as able. (2) Hypertension: Status: Acute Assessment and plan: blood pressure controlled. continue lisinopril monitor routinely (3) Hypercholesteremia: Status: Acute Assessment and plan: continue pravastatin (4) DVT prophylaxis: Status: Acute Assessment and plan: full dose enoxaparin based on new covid guidelines (5) Discharge planning issues: Status: Acute Assessment and plan: anticipate a discharge to home with no services once medically stable discussed with Dr Murphy Subjective Subjective Patient reports: no new complaints, tolerating liquids well, tolerating a regular diet, shortness of breath and afebrile Exam Const General: cooperative, healthy appearing, comfortable, no acute distress and well developed Nutritional Appearance: overweight Orientation: alert, awake and oriented x3 HENMT Head: normal to inspection Mouth: abnormal oral mucosae (slightly dry, no exudates) Resp Effort & Inspection: no respiratory distress and tachypneic (with activity ) Cardio Rate: regular rate Rhythm: regular rhythm GI Inspection: normal to inspection Palpation: soft Skin General skin exam: no rashes or lesions noted Neuro General: patient alert, patient awake and patient oriented x3 Cognition: normal cognition Speech: speech normal Motor: muscle tone normal throughout Extrem General: normal to inspection, full ROM and no pedal edema Objective Last Vital Signs Temp 36.2 C L 07/10/21 07:40 Pulse 65 07/10/21 07:40 Resp 18 07/10/21 07:40 BP 132/84 07/10/21 07:40 Pulse Ox 93 07/10/21 08:47 Laboratory Results - last 24 hr 07/10/21 07/10/21 07/10/21 07:15 07:15 07:15 WBC 7.97 D RBC 3.99 Hgb 12.2 Hct 36.7 MCV 92.0 MCH 30.6 MCHC 33.2 RDW 12.8 Plt Count 339 MPV 9.6 Immature Gran % 0.5 Neutrophils % 71.2 Lymphocytes % 17.8 Monocytes % 10.4 Eosinophils % 0.0 Basophils % 0.1 Nucleated RBC % 0 Absolute Neutrophils 5.67 Absolute Lymphocytes 1.42 Absolute Monocytes 0.83 H Absolute Eosinophils 0.00 Absolute Basophils 0.01 PT INR D-Dimer Sodium 135 L Potassium 3.8 Chloride 102 Carbon Dioxide 21.4 Anion Gap 11.6 H BUN 28 H Creatinine 1.2 H Estimated GFR/1.73 m2 44.16 Glucose 93 Hemoglobin A1c 6.0 H Calcium 8.9 Phosphorus 3.5 Magnesium 1.8 Ferritin 1728 H Total Bilirubin 0.6 Conjugated Bilirubin 0.2 AST 34 ALT 65 H Alkaline Phosphatase 108 C-Reactive Protein 8.92 H Total Protein 7.0 Albumin 2.6 L 07/10/21 07:15 WBC RBC Hgb Hct MCV MCH MCHC RDW Plt Count MPV Immature Gran % Neutrophils % Lymphocytes % Monocytes % Eosinophils % Basophils % Nucleated RBC % Absolute Neutrophils Absolute Lymphocytes Absolute Monocytes Absolute Eosinophils Absolute Basophils PT 11.4 H INR 1.1 D-Dimer 1075 H Sodium Potassium Chloride Carbon Dioxide Anion Gap BUN Creatinine Estimated GFR/1.73 m2 Glucose Hemoglobin A1c Calcium Phosphorus Magnesium Ferritin Total Bilirubin Conjugated Bilirubin AST ALT Alkaline Phosphatase C-Reactive Protein Total Protein Albumin PAWSS Have you Been Recently Intoxicated or Drunk Within the Last 30 days?: No Have you Ever Experienced Previous Episodes of Alcohol Withdrawal?: No Result: 0
[2021-07-10] MEDS: Pravastatin 40 MG TAB PO (20:53)
[2021-07-10] MEDS: Mylanta Suspension 30 ML CUP PO (21:06)
[2021-07-10] MEDS: Melatonin 3 MG TAB PO (23:40)
[2021-07-11] VITALS (8 sets, daily range): BP systolic 112–138; BP diastolic 72–80; PULSE 53–83; RESP 18–20; TEMP 36.2–36.8; O2SAT 92–98
[2021-07-11 03:53] LABS: Vitamin D 25 Total 57.1 ng/mL (30-100)
[2021-07-11] MEDS: Enoxaparin 80 MG/0.8 ML SYR SC ×2 (06:50→17:51)
[2021-07-11 07:05] LABS: HCT 39.1 % (36.0-46.0); HGB 12.9 g/dL (11.2-15.7); MCH 30.9 pg (27.0-33.0); MCV 93.8 fL (80-95); MPV 8.9 fL (8.0-11.0); Platelet Count 357 10^3/uL (130-400); RBC 4.17 10^6/uL (3.93-5.22); RDW 12.6 % (11.7-14.6); RDW-SD 43.8 fL; WBC 7.25 10^3/uL (4.4-10.8)
[2021-07-11] MEDS: Dexamethasone 4 MG TAB 6 MG PO (08:22)
[2021-07-11] MEDS: Zinc Sulfate 220 MG TAB PO (08:22)
[2021-07-11] MEDS: Ascorbic Acid 500 MG TAB 1000 MG PO ×2 (08:22→20:52)
--- NOTE | 2021-07-11 08:22 | PDOC.CMPRO ---
- If Service Date Differs Date of service: 07/11/21 Time of Service: 08:22 Care Management Progress Note S/O:Ondina remains on isolation for Covid infection. CM was unable to meet with her in person, but did contact her by phone. Ondina shared that she was able to take a shower today and feels like a new person. Her oxygen was decreased from 3L to 2L which she interpreted as improvement. Clinically she feels much better as well. CM discussed the possibility of home health at discharge and while Ondina verbalized that she does not feel it is necessary, she would be agreeable. CM also spoke to Ondina's daughter Latrice and updated her about Ondina's progress and discharge plan. A: Ondina is a 71 year old woman admitted with Covid-19 infection with hypoxia P:Ondina will likely return home with no new services when medically ready. She will follow up with her PCP and plan of care as prescribed and transport via private vehicle with her . CM will continue to support Ondina and assess for ongoing discharge concerns.
[2021-07-11] MEDS: Famotidine 20 MG TAB PO (08:23)
[2021-07-11] MEDS: Cholecalciferol (Vitamin D3) 1,000 UNIT TAB 2000 UNITS PO (08:23)
[2021-07-11] MEDS: Lisinopril 20 MG TAB PO (08:23)
[2021-07-11] MEDS: Ipratropium/Albuterol 4 GM 120 PUFF INH IH ×3 (12:02→20:52)
--- NOTE | 2021-07-11 12:55 | W.PM.PROGNOT ---
Date of Service Date of service: 07/11/21 Time of Service: 12:56 Assessment and Plan Assessment and plan (1) COVID-19: Start date: 07/11/21 Start time: 12:59 Status: Acute Assessment and plan: on remdesivir and decadron day 4 routine covid supplements Required increase in oxygen yesterday up to 3 L. If stable or decrease overnight. will do pulse ox and try to discharge home States she feels great. She has been pronning and turning side to side along with sitting up in chair. (2) Hypertension: Start date: 07/11/21 Start time: 12:59 Status: Acute Assessment and plan: blood pressure controlled. continue lisinopril monitor routinely (3) Hypercholesteremia: Start date: 07/11/21 Start time: 12:59 Status: Acute Assessment and plan: continue pravastatin (4) DVT prophylaxis: Start date: 07/11/21 Start time: 12:59 Status: Acute Assessment and plan: full dose enoxaparin based on new covid guidelines (5) Discharge planning issues: Start date: 07/11/21 Start time: 12:59 Status: Acute Assessment and plan: anticipate a discharge to home with no services once medically stable discussed with Dr Murphy Subjective Subjective Patient reports: feels better Interval history since last seen: Spoke with patient via phone. She is feeling much better. She was able to carry full conversations without getting SOB. No new complaints. Exam Narrative Exam Narrative: No SOB when conversing. No cough, denied CP. On camera, up and moving around room. Does not appear to be in distress. Teley with RRR, KAZOx3. normal cognition, cooperative and pleasant Objective Last Vital Signs Temp 36.2 C L 07/11/21 08:25 Pulse 71 07/11/21 08:25 Resp 18 07/11/21 08:25 BP 119/76 07/11/21 08:25 Pulse Ox 92 07/11/21 12:06 Laboratory Results - last 24 hr 07/09/21 07/11/21 06:20 06:35 WBC 7.25 RBC 4.17 Hgb 12.9 Hct 39.1 MCV 93.8 MCH 30.9 MCHC 33.0 RDW 12.6 Plt Count 357 MPV 8.9 25-OH Vitamin D Total 57.1 PAWSS Have you Been Recently Intoxicated or Drunk Within the Last 30 days?: No Have you Ever Experienced Previous Episodes of Alcohol Withdrawal?: No Result: 0
[2021-07-11] MEDS: Melatonin 3 MG TAB PO (20:52)
[2021-07-11] MEDS: Pravastatin 40 MG TAB PO (20:52)
[2021-07-12] VITALS (13 sets, daily range): BP systolic 103–120; BP diastolic 56–82; PULSE 66–98; RESP 16–24; TEMP 36.1–37.1; O2SAT 82–100
[2021-07-12] MEDS: Enoxaparin 80 MG/0.8 ML SYR SC ×2 (05:20→17:40)
[2021-07-12 07:17] LABS: Anion Gap 10.7 mmol/L (3-11); BUN 34 mg/dL (7-18); CO2 21.3 mmol/L (21.0-32.0); CREATININE 1.3 mg/dL (0.55-1.02); Calcium 9.2 mg/dL (8.5-10.1); Chloride 103 mmol/L (98-107); Estimated GFR 40.26 (mL/min/1.73m2); Glucose 85 mg/dL (74-106); Potassium 4.2 mmol/L (3.5-5.1); Sodium 135 mmol/L (136-145)
[2021-07-12 07:24] LABS: ALT 58 U/L (14-59); AST 26 U/L (15-37); Albumin 2.9 g/dL (3.4-5.0); Alkaline Phosphatase 108 U/L (46-116); Bilirubin, Direct 0.2 mg/dL (0.0-0.2); Bilirubin, Total 0.5 mg/dL (0.2-1.0); Total Protein 7.5 g/dL (6.4-8.2)
[2021-07-12] MEDS: Ipratropium/Albuterol 4 GM 120 PUFF INH IH ×4 (08:12→21:08)
[2021-07-12] MEDS: Cholecalciferol (Vitamin D3) 1,000 UNIT TAB 2000 UNITS PO (08:57)
[2021-07-12] MEDS: Zinc Sulfate 220 MG TAB PO (08:57)
[2021-07-12] MEDS: Famotidine 20 MG TAB PO (08:57)
[2021-07-12] MEDS: Ascorbic Acid 500 MG TAB 1000 MG PO ×2 (08:58→21:07)
[2021-07-12] MEDS: Dexamethasone 4 MG TAB 6 MG PO (08:59)
[2021-07-12] MEDS: Lisinopril 20 MG TAB PO (08:59)
--- NOTE | 2021-07-12 13:28 | PDOC.CMDIS ---
- If Service Date Differs Date of service: 07/12/21 Time of Service: 13:28 LACE Index Scoring Tool - Questions: Length of Stay (in days): 4 - 6 Acuity (Admit via E.D.?): Yes E.D. Visits: 1 - Answers: Total Score: 8 Risk of Readmission: Low Risk Care Management Discharge Reason for Hospitalization: COVID-19 Discharge Plan: Ondina will return home with new home oxygen to be delivered this afternoon. She will follow up with her PCP and plan of care as prescribed and will transport via private vehicle with her . Patient/Family Education Needs: Review discharge instructions, discuss Ask Me Three.
--- NOTE | 2021-07-12 16:23 | W.PM.DS.N ---
Date of service: 07/12/21 Time of Service: 14:00 DS: Diagnosis Discharge Diagnosis (1) COVID-19: Start date: 07/12/21 Start time: 16:29 Status: Acute Asessment and Plan: Patient is doing well. She does require 2 L of oxygen with ambulation however she maintains greater than 92% and does not require more. She is to continue proning, using IS and acapella She received 4 doses rendesiver. dexamthasone She is being discharged home as she is feeling well and doing great (2) Hypertension: Start date: 07/12/21 Start time: 16:35 Status: Acute Asessment and Plan: continue lisinopril (3) Hypercholesteremia: Start date: 07/12/21 Start time: 16:35 Status: Acute Asessment and Plan: continue pravastatin discussed with Dr. murphy Discharge Plan Disposition Patient Disposition: HOME Condition: Improving Discharge Details Reason For Visit: COVID-19 with Hypoxia Admit Date/Time: 07/08/21 15:50 Admit Provider: Hali Murphy Attending Provider: Hali Murphy Primary Care Provider: [facility] Hospital Course: 71 year old female who presented to the ED for shortness of breath, diagnosed with covid approx 14 days ago. She is unvaccinated, declined any treatments offered at the time. She was self monitoring and noted sats to be below 90 so presented to the ED. her work up in the ED included a chest CT which was negative for PE. Covid PCR remains positive. Labs show normal troponin, procal 0.1, and mag level of 1.6 which was repleted. She was given decadron 6 mg IV and initially going to refuse remdesivir but was ultimately agreeable to receiving it. She is requiring 2 liters nc oxygen to maintain sats above 90. Over course of treatment she received rendesiver x 4, decadron. She is requiring 2 L oxygen for ambulation, otherwise doing well. She feels great and is maintaining at 92% and above with 2 l. She is being discharged home. recommend she continue to use IS and acapella F/u with PCP in 1 week Home Meds and New Rx's Prescriptions: Continued pravastatin 10 mg Tablet 40 mg PO DAILY RF: 0 lisinopril 5 mg Tablet 20 mg PO DAILY RF: 0 Discharge Instructions Instructions: Using Oxygen at Home (DC), Hypoxia (GEN), COVID-19 (Coronavirus Disease 2019) (DC) Additional Instructions: Follow up with PCP in 1 week Continue to use your breathing devices Activity:: Activity as Tolerated Equipment/Supplies:: 2 L Diet:: Low Sodium Discharge Orders Discharge Orders: Discharge Order (Routine); Ordered 07/12/21 Ordered By: Yamini Garcia DS: Summary Time Spent with Patient providing and/or coordinating discharge services: Less than 30 minutes Status at Discharge Functional status at discharge: independent ambulation Overall status at discharge: patient is progressing back to baseline Mental Status: mental status grossly normal Speech and Movement: speech and movement normal Mood: congruent mood Affect: normal affect Exam Const General: cooperative, healthy appearing, comfortable, no acute distress and well developed Nutritional Appearance: overweight Orientation: alert, awake and oriented x3 HENMT Head: normal to inspection Resp Effort & Inspection: no respiratory distress Auscultation: clear to auscultation bilaterally, no rhonchi and no wheezes Cardio Rate: regular rate Rhythm: regular rhythm GI Inspection: normal to inspection Palpation: soft Skin General skin exam: no rashes or lesions noted Neuro General: patient alert, patient awake, patient oriented x3 and no focal motor deficits Cognition: normal cognition Speech: speech normal Motor: muscle tone normal throughout Extrem General: normal to inspection, full ROM and no pedal edema Psych Mental Status: mental status grossly normal Speech and Movement: speech and movement normal Mood: congruent mood Affect: normal affect DS: Data Vitals/I&O Vitals and I&O: Vital Signs Temperature 36.5 C 07/12/21 12:10 Temperature Source Tympanic 07/12/21 12:10 Pulse 82 07/12/21 15:00 Pulse Rhythm Regular 07/12/21 09:47 Pulse 88 07/08/21 17:01 Respiratory Rate 16 07/12/21 12:10 Respiratory Effort Non-Labored 07/12/21 09:47 Respiratory Depth Normal 07/12/21 09:47 Respiratory Pattern Normal 07/12/21 09:47 Blood Pressure 117/78 07/12/21 12:10 Blood Pressure Mean 99 07/08/21 17:00 Blood Pressure Position Sitting 07/08/21 13:23 Pulse Oximetry 91 L 07/12/21 12:10 Oxygen Delivery Method Nasal Cannula 07/12/21 12:10 Oxygen Flow Rate 2 07/12/21 12:10 Fraction of Inspired Oxygen (FIO2) 29 07/12/21 08:12 Pain Level 0 07/12/21 12:10 Comment 07/11/21 16:04 Intake & Output 07/11/21 07/12/21 07/12/21 23:59 11:59 23:59 Intake Total 100 / 100 Output Total 900 / 900 Balance 100 / 100 -900 / -900 Intake: IV 100 / 100 Output: Urine 900 / 900 Other: Urine Color Yellow Urine Appearance Clear Clear Stool Size Small Moderate Stool Characteristics Formed Soft Voiding Methods Bedside Commode Data Completed and Pending Completed studies during hospitalization [Text1]: COMPARISON: No exams were available for comparison FINDINGS: Exam is somewhat limited by respiratory motion. There are patchy mainly ground-glass appearing infiltrates in both upper and lower lobes. No pulmonary emboli are seen. There is motion at the aortic root but no evidence of dissection. There is mild cardiac enlargement. There are mild coronary artery calcifications. There are minimal aortic calcifications. No adenopathy. No pleural effusion or pneumothorax. Status post cholecystectomy. Fatty liver. Degenerative changes are seen in the thoracic spine. No compression fractures. IMPRESSION: Diffuse bilateral pulmonary infiltrates. No evidence of pulmonary embolism. Exam(s) XR PORTABLE CHEST AP EXAM: XR PORTABLE CHEST AP CLINICAL HISTORY: SOB TECHNIQUE: 2D digital imaging was performed. COMPARISON: No exams were available for comparison FINDINGS: Heart size is within normal limits. There are low lung volumes. There are bilateral streaky infiltrates in both upper and lower lobes. No visible effusions. No pneumothorax. IMPRESSION: Bilateral diffuse infiltrates, compatible with COVID- 19 pneumonia. Labs on day of discharge: Labs from last 24 hours 07/12/21 07/12/21 06:50 06:50 Sodium 135 L Potassium 4.2 Chloride 103 Carbon Dioxide 21.3 Anion Gap 10.7 BUN 34 H Creatinine 1.3 H Estimated GFR/1.73 m2 40.26 Glucose 85 Calcium 9.2 Total Bilirubin 0.5 Conjugated Bilirubin 0.2 AST 26 ALT 58 Alkaline Phosphatase 108 Total Protein 7.5 Albumin 2.9 L Preliminary micro results at discharge 07/11/21 08:30 Urine Culture - Preliminary Urine - Clean Catch Escherichia coli PFSH All Active Problems Discharge planning issues (Acute) DVT prophylaxis (Acute) COVID-19 (Acute) Hypercholesteremia (Acute) Hypertension (Acute) Surgical History History of hip replacement Social History Smoking/Tobacco Use Status: Former Tobacco Use Quit Date: 06/29/09 Smoking risk assessment performed?: Yes Alcohol Intake: never Substance use type: does not use Do you feel safe at home: Yes Do you feel safe in your relationship?: Yes
[2021-07-12] MEDS: Melatonin 3 MG TAB PO (21:07)
[2021-07-12] MEDS: Pravastatin 40 MG TAB PO (21:07)
[2021-07-12] MEDS: Milk of Magnesia 30 ML CUP PO (21:09)
[2021-07-13 02:22] VITALS: BP 117/63; PULSE 71; RESP 22; TEMP 36.8; O2SAT 90
[2021-07-13] MEDS: Enoxaparin 80 MG/0.8 ML SYR SC (05:54)
[2021-07-13 07:00] VITALS: PULSE 60
[2021-07-13] MEDS: Dexamethasone 4 MG TAB 6 MG PO (07:44)
[2021-07-13] MEDS: Cholecalciferol (Vitamin D3) 1,000 UNIT TAB 2000 UNITS PO (07:44)
[2021-07-13] MEDS: Ascorbic Acid 500 MG TAB 1000 MG PO (07:44)
[2021-07-13] MEDS: Lisinopril 20 MG TAB PO (07:44)
[2021-07-13] MEDS: Famotidine 20 MG TAB PO (07:44)
[2021-07-13] MEDS: Zinc Sulfate 220 MG TAB PO (07:44)
[2021-07-13] MEDS: Ipratropium/Albuterol 4 GM 120 PUFF INH IH (07:45)
[2021-07-13 07:55] VITALS: BP 107/67; PULSE 72; RESP 18; TEMP 36.4; O2SAT 93
== END 2021-07-13 08:56 | disposition home or self-care (01) | DRG 177 ==
LOC: ER 13:15 → MS 17:26
PROVIDERS: Nurse Practitioner Family; Admitting Provider Internal Medicine; Emergency Provider Physician Assistant; PCP Family Medicine; Visit Provider Internal Medicine
DX: U07.1 COVID-19 (principal); J12.82 Pneumonia due to coronavirus disease 2019; R09.02 Hypoxemia; E78.00 Pure hypercholesterolemia, unspecified; I10 Essential (primary) hypertension
CPT/HCPCS: 36415; 71275; 80048; 80053; 80061; 80076; 82306; 82550; 84145; 85027; 87077; 87635; 93005; 94618; 94640; 96365; 96375; 99285; 71045; 82728; 83036; 83735; 84100; 84484; 85025; 85379; 85610; 86140; 87086; 87186; 93010; 94667; 99232; 99233; 99238; J0248; J1100; J1650; J3475; J3490; J8540

== ENCOUNTER 2021-09-06 17:41 | Outpatient (REF) | payer MEDICARE, SELFPAY | END 2021-09-06 17:42 | disposition home or self-care (01) | LOC: NCHCN 17:41 | PROVIDERS: PCP Family Medicine; Visit Provider Family Medicine | DX: R30.0 Dysuria (principal) | CPT/HCPCS: 87077; 87086; 87186 ==

== ENCOUNTER 2022-07-14 10:21 | Outpatient (REF) | payer MEDICARE, SELFPAY ==
[2022-07-14 15:48] LABS: ALT 29 U/L (14-59); AST 20 U/L (15-37); Albumin 4.1 g/dL (3.4-5.0); Alkaline Phosphatase 94 U/L (46-116); Anion Gap 7.8 mmol/L (3-11); BUN 33 mg/dL (7-18); Bilirubin, Total 0.4 mg/dL (0.2-1.0); CO2 28.2 mmol/L (21.0-32.0); CREATININE 1.5 mg/dL (0.55-1.02); Calcium 9.5 mg/dL (8.5-10.1); Calculated LDL 125 mg/dL (<100); Chloride 103 mmol/L (98-107); Cholesterol 224 mg/dL (<200); Estimated GFR 36.57 (mL/min/1.73m2); Glucose 126 mg/dL (74-106); HDL Cholesterol 71 mg/dL (40-60); Potassium 5.4 mmol/L (3.5-5.1); Sodium 139 mmol/L (136-145); Total Protein 7.7 g/dL (6.4-8.2); Triglyceride 143 mg/dL (<150)
== END 2022-07-14 10:22 | disposition home or self-care (01) ==
LOC: NCHCN 10:21
PROVIDERS: PCP Family Medicine; Visit Provider Family Medicine
DX: E78.5 Hyperlipidemia, unspecified (principal); I10 Essential (primary) hypertension; Z00.00 Encounter for general adult medical examination without abnormal findings
CPT/HCPCS: 80053; 80061

== ENCOUNTER 2024-04-18 19:14 | Outpatient (REF) | payer MEDICARE, SELFPAY ==
[2024-04-18 15:35] LABS: Abs Immature Grans 0.01 10^3/uL (0.0-0.06); Absolute Basophil Count 0.09 10^3/uL (0.0-0.2); Absolute Eosinophil Count 0.17 10^3/uL (0.0-0.7); Absolute Lymphocyte Count 2.44 10^3/uL (1.2-3.4); Absolute Monocyte Count 0.56 10^3/uL (0.1-0.8); Absolute Neutrophil Count 3.16 10^3/uL (1.2-6.7); Basophils % 1.4 %; Eosinophils % 2.6 %; HCT 43.2 % (36.0-46.0); HGB 14.4 g/dL (11.2-15.7); Immature Grans % 0.2 %; Lymphocytes % 37.9 %; MCH 32.4 pg (27.0-33.0); MCHC 33.3 % (32.0-36.0); MCV 97 fL (80-95); MPV 10.2 fL (8.0-11.0); Monocytes % 8.7 %; Neutrophils % 49.2 %; Platelet Count 203 10^3/uL (130-400); RBC 4.44 10^6/uL (3.93-5.22); RDW 12.6 % (11.7-14.6); WBC 6.43 10^3/uL (4.4-10.8)
[2024-04-18 16:21] LABS: ALT 28 U/L (14-59); AST 19 U/L (15-37); Alkaline Phosphatase 96 U/L (46-116); Anion Gap 9.9 mmol/L (3-11); BUN 25 mg/dL (7-18); Bilirubin, Total 0.51 mg/dL (0.2-1.0); CO2 26.1 mmol/L (21.0-32.0); CREATININE 1.4 mg/dL (0.55-1.02); Calculated LDL 124 mg/dL (<100); Chloride 105 mmol/L (98-107); Cholesterol 222 mg/dL (<200); Estimated GFR 39.23 (mL/min/1.73m2); Glucose 104 mg/dL (74-106); HDL Cholesterol 74 mg/dL (40-60); Potassium 5.4 mmol/L (3.5-5.1); Sodium 141 mmol/L (136-145); Total Protein 7.7 g/dL (6.4-8.2); Triglyceride 124 mg/dL (<150); Vitamin D 25 Total 43.8 ng/mL (30-100)
== END 2024-04-18 19:15 | disposition home or self-care (01) ==
LOC: NCHCN 19:14
PROVIDERS: PCP Family Medicine; Visit Provider Family Medicine
DX: E78.5 Hyperlipidemia, unspecified (principal); E55.9 Vitamin D deficiency, unspecified; Z00.00 Encounter for general adult medical examination without abnormal findings
CPT/HCPCS: 80053; 80061; 82306; 85025

== ENCOUNTER 2024-12-21 11:24 | Outpatient (REF) | payer MEDICARE, SELFPAY ==
[2024-12-21 14:43] LABS: Abs Immature Grans 0.01 10^3/uL (0.0-0.06); Absolute Basophil Count 0.08 10^3/uL (0.0-0.2); Absolute Lymphocyte Count 2.08 10^3/uL (1.2-3.4); Basophils % 1.4 %; Eosinophils % 1.8 %; HCT 45.6 % (36.0-46.0); HGB 15.1 g/dL (11.2-15.7); Immature Grans % 0.2 %; Lymphocytes % 37.3 %; MCH 31.9 pg (27.0-33.0); MCHC 33.1 % (32.0-36.0); MCV 96 fL (80-95); MPV 10.4 fL (8.0-11.0); Neutrophils % 50.3 %; Platelet Count 219 10^3/uL (130-400); RBC 4.74 10^6/uL (3.93-5.22); RDW 12.3 % (11.7-14.6); RDW-SD 43.8 fL; WBC 5.57 10^3/uL (4.4-10.8)
[2024-12-21 14:54] LABS: ALT 34 U/L (14-59); AST 22 U/L (15-37); Albumin 4.3 g/dL (3.4-5.0); Alkaline Phosphatase 95 U/L (46-116); Anion Gap 10.2 mmol/L (3-11); BUN 18 mg/dL (7-18); Bilirubin, Total 0.5 mg/dL (0.2-1.0); CO2 24.8 mmol/L (21.0-32.0); CREATININE 1.4 mg/dL (0.55-1.02); Calcium 9.5 mg/dL (8.5-10.1); Calculated LDL 112 mg/dL (<100); Chloride 103 mmol/L (98-107); Cholesterol 205 mg/dL (<200); Estimated GFR 39.23 (mL/min/1.73m2); Glucose 100 mg/dL (74-106); HDL Cholesterol 75 mg/dL (>or=50); Potassium 4.8 mmol/L (3.5-5.1); Sodium 138 mmol/L (136-145); Triglyceride 94 mg/dL (<150)
== END 2024-12-21 11:25 | disposition home or self-care (01) ==
LOC: NCHCN 11:24
PROVIDERS: PCP Family Medicine; Visit Provider Family Medicine
DX: I10 Essential (primary) hypertension (principal); Z00.00 Encounter for general adult medical examination without abnormal findings; E78.5 Hyperlipidemia, unspecified
CPT/HCPCS: 80053; 80061; 85025